=== PATIENT | female | born 1990 | race American Indian/Alaskan Native ===

== ENCOUNTER 2017-04-10 15:35 | Emergency (ER) | payer OTHER ==
[~2017-04-10] VITALS: Ht 165.1 cm; Wt 65.8 kg
[2017-04-10] MEDS ORDERED: ALLEGRA ALLERG180 MG PO (16:02)
[2017-04-10] MEDS ORDERED: MONTELUKAST SOD10 MG PO (16:03)
[2017-04-10] MEDS ORDERED: ZANTAC150 MG PO (16:03)
[2017-04-10] MEDS ORDERED: PRENATABS FA T1 EACH PO (16:04)
== END 2017-04-10 19:38 | disposition home or self-care (01) ==
LOC: ED 15:35
DX: O20.0 Threatened abortion (principal); Z79.899 Other long term (current) drug therapy; Z3A.16 16 weeks gestation of pregnancy
CPT/HCPCS: 36415; 76815; 86900; 86901; 99284